=== PATIENT | male | born 1980 | race Caucasian/White ===

== ENCOUNTER 2017-04-18 09:37 | Emergency (ER) | payer BC | END 2017-04-18 11:06 | disposition home or self-care (01) | LOC: E/R 11:06 | DX: J02.9 Acute pharyngitis, unspecified (principal) | CPT/HCPCS: 99284 ==

== ENCOUNTER 2017-05-24 20:54 | Emergency (ER) | payer BC ==
[2017-05-25] MEDS: morphine 4 MG/ML VIAL IM (00:08)
[2017-05-25] MEDS: KETOROLAC 60 MG INJ IM (00:08)
== END 2017-05-25 01:10 | disposition home or self-care (01) ==
LOC: E/R 20:54
DX: J02.9 Acute pharyngitis, unspecified (principal)
CPT/HCPCS: 96372; 99284-25